=== PATIENT | female | born 1995 | race African-American/Black ===

== ENCOUNTER 2019-11-06 02:38 | Observation (INO) ==
[2019-11-06] MEDS ORDERED: methylPREDNISolone SOD SUC 125 MG/2 ML VIAL IV STA (03:26)
[2019-11-06] MEDS ORDERED: CLINDAMYCIN INJ 600 MG in PREMIX 1 EACH IV STA (03:26)
[2019-11-06] MEDS ORDERED: KETOROLAC 30 MG/1 ML VIAL IV STA (03:26)
[2019-11-06 04:00] LABS: Basophils # 0.1 10*3/uL (0.0-0.2); Basophils % 0.7 % (0.0-0.8); Eosinophils % 0.3 % (0.00-10.9); Hematocrit 39.8 VOL% (35.7-47.0); Hemoglobin 13.5 GM/DL (12.0-16.0); Immature Granulocytes % 0.6 %; Immature Granulocytes Absolute 0.06 #; Lymphocytes # 2.2 10*3/uL (1.4-4.0); Lymphocytes % 22.8 % (21.3-54.2); Mean Corpuscular HGB Conc 33.9 GM/DL (32-36); Mean Corpuscular Volume 85.8 FL (87-102); Mean Platelet Volume 10.6 FL (9.6-12.0); Monocytes % 8.3 % (1.7-12.7); Neutrophils % 67.3 % (38.7-73.9); Platelet Count 315 T/CUMM (130-400); Red Blood Count 4.64 MC/CUMM (3.8-5.5); Red Cell Distribution Width 12.5 % (9.3-17.3); White Blood Count 9.5 T/CUMM (4-12)
[2019-11-06 04:14] LABS: Albumin 4.3 G/DL (3.4-5.0); Bilirubin,Total 0.7 MG/DL (0.2-1.0); Calcium 9.5 MG/DL (8.5-10.1); Osmolality,Calculated 277.5 MOS/KG (273-304); Total Protein 9.2 G/DL (6.4-8.3)
[2019-11-06] MEDS ORDERED: POTASSIUM CHLORIDE 20 MEQ/15 ML UDCUP PO ONE (04:17)
[2019-11-06] MEDS ORDERED: ONDANSETRON 4 MG/2 ML VIAL IV PRN (05:12)
[2019-11-06] MEDS ORDERED: LACTATED RINGERS 1,000 ML IV SCH (05:30)
[2019-11-06] MEDS ORDERED: OXYMETAZOLINE 0.05% NASAL SPRAY 15 ML BOTTLE ONE (09:17)
[2019-11-06] MEDS ORDERED: SUGAMMADEX 200 MG/2 ML VIAL IV ONE (10:11)
[2019-11-06] MEDS ORDERED: SEVOFLURANE 1 UNIT/15 MINUTE INH ONE (10:31)
[2019-11-06] MEDS ORDERED: LIDOCAINE 2% 5 ML VIAL ONE (10:31)
[2019-11-06] MEDS ORDERED: propofoL 200 MG/20 ML VIAL IV ONE (10:31)
[2019-11-06] MEDS ORDERED: MIDAZOLAM 2 MG/2 ML VIAL ONE (10:31)
[2019-11-06] MEDS ORDERED: fentaNYL 100 MCG/2 ML VIAL ONE (10:32)
[2019-11-06] MEDS ORDERED: DEXAMETHASONE 4 MG/1 ML VIAL ONE (10:32)
[2019-11-06] MEDS ORDERED: ONDANSETRON 4 MG/2 ML VIAL ONE (10:32)
[2019-11-06] MEDS ORDERED: ROCURONIUM 100 MG/10 ML VIAL IV ONE (10:32)
[2019-11-06] MEDS: CLINDAMYCIN INJ 600 MG in PREMIX 1 EACH IV SCH ×2 (11:52→15:57)
[2019-11-06] MEDS ORDERED: methylPREDNISolone SOD SUC 40 MG/1 ML VIAL IV SCH (12:00)
[2019-11-06 16:47] VITALS: BP 112/73
== END 2019-11-06 18:52 | disposition home or self-care (01) ==
LOC: N.EDINP 02:38 → N.ED 02:38 → N.TELES 05:28
PROVIDERS: ADMIT Otolaryngology; ATTEND Otolaryngology